=== PATIENT | male | born 1975 | race Two or more races ===

== ENCOUNTER → 2024-12-12 | Outpatient (CLI) | payer MEDICAID, SELFPAY ==
--- NOTE | 2024-12-12 | XR_ITS ---
Examination: Thoracolumbar spine 2 views TECHNIQUE: AP lateral thoracolumbar spine 2 views Exam date and time: December 12, 2024 1232 hours INDICATIONS: Low back pain beginning 3 weeks ago. FINDINGS: Adequate alignment visualized vertebral bodies on the lateral view No lumbar or thoracic fracture No significant disc narrowing No spondylolisthesis IMPRESSION: No significant disc narrowing
== END | disposition home or self-care (01) ==
PROVIDERS: PCP Nurse Practitioner Primary Care; Referring Provider Nurse Practitioner Primary Care; Visit Provider Nurse Practitioner Primary Care
DX: M54.50 Low back pain, unspecified (principal)
CPT/HCPCS: 72080